=== PATIENT | female | born 1985 | race Hispanic/Latino ===

== ENCOUNTER 2017-02-18 07:04 | Inpatient (IN) | payer MEDICAID ==
[~2017-02-18] VITALS: Ht 157.5 cm; Wt 72.6 kg
[2017-02-18] MEDS ORDERED: Lactated Ringer's 1,000 ML IV SCH ×2 (08:03→12:36)
[2017-02-18] MEDS ORDERED: Methylergonovine 0.2 mg/mL Inj IM PRN ×2 (08:05→12:40)
[2017-02-18] MEDS ORDERED: CeFAZolin Inj 2 GM in Dextrose 5% 50 ML IV ONE (08:05)
[2017-02-18] MEDS ORDERED: Hemorrhage Kit, Post Partum XX ONE ×2 (08:05→12:40)
[2017-02-18] MEDS ORDERED: Sodium Citrate-Citric Acid 15 mL Solution PO SCH (08:05)
[2017-02-18] MEDS ORDERED: Carboprost 250 mCg/mL Inj IM PRN ×2 (08:05→12:40)
[2017-02-18] MEDS ORDERED: Oxytocin 10 Unit/mL Inj IM PRN ×2 (08:05→12:40)
[2017-02-18] MEDS ORDERED: CeFAZolin Inj 2 GM in IV Premix 1 EACH IV ONE (08:12)
[2017-02-18 08:15] LABS: Mean Corpuscular Hemoglobin 29.6 pg (27.0-35.0); Mean Corpuscular Volume 89.8 fL (81-100)
[2017-02-18] MEDS ORDERED: Morphine PF 1 mg/mL 10 mL Inj ONE (08:16)
[2017-02-18] MEDS ORDERED: Dexamethasone 4 mg/mL Inj ONE (08:16)
[2017-02-18] MEDS ORDERED: Ondansetron 2 mg/mL 2 mL Inj ONE (08:16)
[2017-02-18] MEDS ORDERED: MetoCLOpramide 5 mg/mL 2 mL Inj ONE (08:16)
[2017-02-18] MEDS ORDERED: Phenylephrine/NS 100 mCg/mL 10 mL Syringe IVPUSH ONE (08:16)
[2017-02-18] MEDS ORDERED: Oxytocin 10 Unit/mL Inj ONE (08:16)
[2017-02-18] MEDS ORDERED: EPHEDrine/NS 5 mg/mL 5 mL Syringe ONE (08:16)
--- NOTE | 2017-02-18 09:58 | HP ---
[address] [address] HISTORY AND PHYSICAL PATIENT: SANCHEZ NG : 1985 MR#: [id number] ADMIT: 02/18/2017 JOB ID: [id number] DATE OF ADMISSION: 02/18/2017 CHIEF COMPLAINT: Patient presented for scheduled repeat section and bilateral tubal ligation. HISTORY OF PRESENTING ILLNESS: This is a 31 years old 2, para 1-0-0-1, at 39 weeks and 3 days with expected date of delivery of February 22, 2017, dated by last menstrual period and consistent with a nine week ultrasound. Patient had history of previous one section. Declined trial of labor after section. The patient desires permanent sterilization. Informed consent for sterilization was signed on January 10, 2017 and a surgical consent for repeat section and tubal ligation was signed on February 03, 2017. The patient presented today for scheduled procedure with no complaint. The patient reports good movement. No vaginal bleeding, no loss of fluid and no regular contractions. complicated with: 1. Previous one section. 2. Possible Zika virus exposure, negative screening testing x2. 3. Echogenic intracardiac foci. Patient was referred to Maternal Medicine. Confirmed echogenic intracardiac focus in the left ventricle. No other markers was noted. Cell-free DNA test negative for aneuploidy. 4. History of kidney stones during this . The patient was seen by Urology at [place]. PAST GYNECOLOGIC HISTORY: Menarche at age 17, regular menstrual cycles monthly. Last for 4-5 days. Used control pills in the past for control with side effect of headache. PAST OBSTETRIC HISTORY: First was in 2012 delivered via delivery was scheduled for suspected macrosomia and cephalopelvic disproportion. The surgery was done in [place]. Outcome female 3.65 kg. Anesthesia was regional. PAST MEDICAL HISTORY: Noncontributory besides history of kidney stones during this . PAST SURGICAL HISTORY: 1. delivery x1. 2. Hernia repair in the right lower quadrant. MEDICATIONS: vitamins. ALLERGIES: No known drug allergies. SOCIAL HISTORY: He denies smoking, alcohol, or illicit drug abuse. FAMILY HISTORY: Mother is healthy. Father is healthy. Siblings are healthy. Positive history of twins, uncles, and cousins. Denies family history of cancer or congenital disease or mental or developmental disease. REVIEW OF SYSTEMS: An 11-point review of systems is negative except for the items in the history of presenting illness. PHYSICAL EXAMINATION: Vital signs stable. General, alert oriented to time, place, and person. Neck is supple. Chest equal air entry bilaterally. No added sounds. Cardiovascular regular rate and rhythm. Abdomen gravid, no tenderness. Estimated weight 7-1/2 pounds. Lower extremities +1 edema bilaterally. Positive deep tendon reflex +2 bilaterally. No clonus. LABORATORIES: labs: Blood type O positive. Rubella immune. RPR nonreactive. Hepatitis B surface antigen nonreactive. HIV nonreactive. Antibody screening negative at nine weeks. Hematocrit 35.8 at 9 weeks and 35% at 28 weeks. Quad screen negative. Urine culture negative on July 19, 2016. Diabetes screening one hour test within normal limits 124 at 28 weeks. Chlamydia and gonorrhea screening negative on August 16, 2016. Group B strep positive January 27, 2017. Pap smear within normal limits. An HPV negative on August 16, 2016. ASSESSMENT: This is a 31 years old 2, para 1-0-0-1, at 39 weeks and 3 days gestation with previous one section. Declined trial of labor after section and desires permanent sterilization. PLAN: Informed consents were reviewed and the patient was counseled shortly before surgery again about risk and benefits and alternatives of repeat section. The patient desires to proceed with a section. The patient was also counseled about risks, benefits, and alternatives of tubal ligation including [place] and male sterilization. Patient understands that tubal ligation is permanent procedure and with a failure rate of 1 in 200 with risk of ectopic and possible need for hormonal contraceptive in the future for abnormal uterine bleeding if present. All questions were answered. The patient desires to proceed with a tubal ligation as planned today. Labs drawn and will proceed with the procedure.
[2017-02-18] MEDS ORDERED: EPHEDrine Sulfate 50 mg/mL Inj IVPUSH PRN (11:20)
[2017-02-18] MEDS ORDERED: Atropine 0.4 mg/mL Inj IV PRN (11:20)
[2017-02-18] MEDS ORDERED: fentaNYL-PF 50 mCg/mL 2 mL Inj IVPUSH PRN (11:20)
[2017-02-18] MEDS ORDERED: Promethazine Inj 12.5 MG in Dextrose 5%-Pha MIX 50 ML IV ONE (11:25)
--- NOTE | 2017-02-18 11:25 | PCM.HPANE ---
Patient Data Date of Service: Feb 18, 2017 Surgeon Admitting Provider:Adrianne Krishna MD Attending Provider:Adrianne Krishna MD Primary Care Physician:Micheal Other Provider:Kayce Soto Anesthesia Reason for Visit Term TERM Ht/WT & BMI Body Mass Index Allergies Coded Allergies: No Known Allergies (Unverified , 02/18/17) Past Anesthesia History Anesthesia History: Denies:: Abnormal Airway Diabetes History Hx Diabetes?: No MRSA MRSA: No Medications Hypertension Medication: No Home Meds Incl Beta Jose D: No History History of ENT Problems?: No HEENT History: Denies:: Abnormal Airway Denture Type: None Teeth Condition: Within Normal Limits Hx of Heart Problems?: No Cardiovascular History: Denies:: Peripheral Vascular Rheumatic Fever Hx of Respiratory Problem?: No Respiratory History: Denies:: Asthma Hx Neurologic Problems?: No Hx of GI Problems?: No Hx of Problems?: No HX of Peritoneal Dialysis: No Female Hx: Positive for:: Currently Hx Musculoskeletal Problems?: No Hx of Psycho/Social Problems?: No Hx Surgeries?: No Hx Any Other Health Problems?: No Hx Diabetes: No Smoking Status: Never Smoker Stop/Bang Treated for Sleep Apnea?: No Do You Have a CPAP Machine?: No S-Snoring: Do You Snore Loudly: No T-Tired: feel tired, fatigued: No O-Obsered: Observed not breath: No P-Blood Pressure: treated: No B- Body Mass Index > 35 kg/m2: No A- Age over 50: No N- Neck Large Circumference: No G- Gender Male: No MIKE Risk Assessment: Low Risk, <3 Yes Risk Assessment Category Category 1A: Patient has history of documented sleep apnea, and HAS NOT received any narcotic, sedative or anesthesia administration during this stay. Category 1B: Patient has history of documented sleep apnea, and HAS received any narcotic , sedative or anesthesia administration during this stay Category 2: Patient has SUSPECTED Obstructive Sleep Apnea, and HAS received any narcotic , sedative or anesthesia administration during this stay. Category 3: Patient has SUSPECTED Obstructive Sleep Apnea and HAS NOT received narcotic, sedative or anesthesia administration during this stay. Category 4: Outpatient in Procedural Areas with known sleep apnea or who screen positive for High Risk via the STOP/BANG questionnaire. Exam Exam General Appearance: Alert, Oriented X3 HEENT/AIRWAY: MP 2 Lungs: Clear to Auscultation Heart: Exam Unremarkable Meds/Labs/Diagnostics Admission Meds Current Medications Lactated Ringer's (Lr) 1,000 ml @ 125 mls/hr Q8H IV Last administered on t 09:26; Start 02/18/17 at 08:03; Stop 02/18/17 at 16:02 Labs Test 02/18/17 07:30 White Blood Count 8.3th/mm3 (3.8-10.1) Red Blood Count 3.82mil/mm3 (3.90-5.20) Hemoglobin 11.3g/dL (12.0-15.6) Hematocrit 34.3% (35.0-46.0) Mean Corpuscular Volume 89.8fL (81-100) Mean Corpuscular Hemoglobin 29.6pg (27.0-35.0) Mean Corpuscular Hemoglobin Concent 32.9% (32.0-37.0) Red Cell Distribution Width 14.2% (12.3-15.4) Platelet Count 165bil/L (150-400) Plan Impression Patient chart reviewed, patient interviewed and anesthestic plan with risks, benefits, and alternatives discussed, and informed consent obtained. NPO per Anesth. Guidelines: Yes ASA Physical Status: ASA1 Normal Healthy Anesthetic Plan: Regional Block Bene/Risks/Altern/Consents: Yes HP Complete Prior to Induction: Yes Keith Contreras MD Feb 18, 2017 11:25
[2017-02-18] MEDS ORDERED: Ondansetron 8 mg ODT Tablet PO PRN (12:40)
[2017-02-18] MEDS ORDERED: Oxytocin 30 Units/500 mL LR 30 UNITS in IV Premix 1 EACH IV PRN (12:40)
[2017-02-18] MEDS ORDERED: LANOlin HPA 7 Gm Ointment TOPICAL PRN (12:40)
[2017-02-18] MEDS ORDERED: Sodium Chloride LOK Flush 10 mL Syringe IVFLUSH PRN (12:40)
[2017-02-18] MEDS ORDERED: Ondansetron 2 mg/mL 2 mL Inj IVPUSH ONE (12:40)
[2017-02-18] MEDS ORDERED: hydrOXYzine Pamoate 25 mg Capsule PO PRN (12:40)
[2017-02-18] MEDS ORDERED: Promethazine 50 mg Rectal Suppository RECTAL PRN (12:40)
[2017-02-18] MEDS ORDERED: Promethazine 25 mg Rectal Suppository RECTAL PRN (12:53)
--- NOTE | 2017-02-18 13:42 | OP ---
[address] [address] OPERATIVE REPORT PATIENT: SANCHEZ NG : 1985 MR#: [id number] ADMIT: 02/18/2017 JOB ID: [id number] DATE OF SURGERY: 02/18/2017 PREOPERATIVE DIAGNOSIS(ES): 1. Previous delivery, declined trial of labor after section. 2. Desires permanent sterilization. POSTOPERATIVE DIAGNOSIS(ES): 1. Previous delivery, declined trial of labor after section. 2. Desires permanent sterilization. PROCEDURE: Repeat delivery with bilateral tubal ligation. SURGEON: Adrianne Krishna M.D. BOX SEALING MACHINE OPERATOR: Kristi Madden M.D. COMPLICATIONS: None. ANESTHESIA: Spinal. ESTIMATED BLOOD LOSS: 700 mL. IV FLUIDS: 1500 mL. URINE OUTPUT: 250 mL. SPECIMEN: Segment of the right and left fallopian tubes sent for pathology. IMPLANTS: None. FINDINGS: Normal uterus, tubes and ovaries though the right ovary noted to be edematous and only the distal segment of the tube was identified and was traced to the fimbria. INDICATIONS: This is a 31-year-old 2, para 1-0-0-1, at 39 weeks and 3 days gestation with history of previous section. The patient was counseled extensively at the office regarding the risks, benefits and alternatives of repeat section and compared to trial of labor after section. Patient declined trial of labor after section and desires to proceed with a repeat section. The patient was also interested in sterilization. The patient was counseled extensively at the office and again prior to the procedure regarding risks, benefits and alternatives of tubal ligation. Discussed alternative options including LARC and male sterilization. Discussed tubal ligation is a permanent procedure, risk of ectopic was reviewed. The risk of need of hormonal contraception or treatment in the future for abnormal uterine bleeding. All discussed in details. The patient desires to proceed with the tubal ligation today. OUTCOME: Male Apgars 9 and 10 at one and five minutes respectively and the weight is 3765 g equivalent to 8 pounds 5 ounces. One nuchal cord was released before delivery of the in cephalic presentation. Placenta was delivered with simple expression intact. DESCRIPTION OF PROCEDURE: After informed consent was obtained, the patient was taken to the operation room. She was placed under adequate spinal anesthesia, then she was placed in supine position. The pelvic preparation was performed with iodine and then Bryant catheter was inserted. Abdominal prep was performed and the patient was draped in the usual sterile fashion. After confirmation of anesthesia adequacy, a skin incision was made along the line of the previous scar. The incision was carried down to the fascia with Bovie cautery. The initial fascial incision was made with a scalpel that was extended bilaterally with curved Espinosa scissors in a curvilinear fashion. The inferior aspect of the fascia was grasped on either side of the midline. The fascia was dissected off the underlying rectus muscles with blunt and sharp dissection. Then, the superior aspect of the fascia was grasped on either side of the midline and was dissected off the underlying rectus muscles with blunt and sharp dissection. The rectus muscles were then in the midline. Dense adhesions were noted at this level. An area clear of the vascularity of adhesions was identified and was using Bovie cautery. Then, the peritoneum was identified. An area clear of the vascularity of the peritoneum was entered bluntly. Then was extended with Metzenbaum scissors and are is clear of vascularity or viscera. Then the peritoneal opening was further extended with bilateral traction. A bladder blade was placed. The peritoneal reflection was identified. Bladder flap was created with Metzenbaum scissors. Bladder blade was repositioned. The uterine incision was made in the lower uterine segment and it was extended with bandage scissors in a curvilinear fashion. Clear amniotic fluid was noted. Head was elevated out of the pelvis easily and was delivered in cephalic presentation in left occiput anterior position. Nuchal cord was released. Shoulders delivered without difficulty. Delayed cord clamping was performed after 1 minute. The cord blood was collected for typing. Then the placenta was delivered with simple expression. The uterus was exteriorized, cleared of any remaining clots and debris. The uterine incision was then closed with 0-Vicryl in a running, interlocking fashion. A second imbricating layer was performed with good hemostasis. An area of hematoma was noted at the left lower uterine incision that was controlled with three [id number] stitches using 0-Vicryl. Small bleeders at the lower uterine segment were controlled with Bovie cautery. Then, attention was turned to the tubal ligation part of the procedure. The left fallopian tube was identified, traced out to the fimbria. The middle segment of the tube that was elevated with Sharon clamp, window was created in the mesial salpinx with Bovie cautery. Then, the middle segment was double ligated bilaterally with plain gut and a 3-4 cm segment was excised. The stump end of the remaining tube was examined. Hemostasis was ensured with Bovie cautery. Then, attention was turned to the right fallopian tube that was traced out to the fimbria. The medial half of the tube was edematous, enlarged and diffused with the mesosalpinx but the distal half of the tube was normal in appearance. That was grasped with a [place] and elevated. A window was created in the mesosalpinx. A middle segment 3-4 cm in length was double ligated in each side and was excised. The remaining stumps were examined and hemostasis was ensured with gentle Bovie cautery. Tubes were re-examined. Hemostasis was ensured. The posterior cul-de-sac was irrigated and cleared of any remaining clots and debris. The uterus was placed back into the abdominal cavity. Lateral gutters were examined and cleared of any remaining clots and debris. The fallopian tube was examined and hemostasis was ensured. Then the uterine incision was revisited, noted to be hemostatic. Attempted to close the peritoneum but the peritoneal opening was under tension and irregular. So the rectus muscles were approximated with simple interrupted stitches using 2-0 chromic. The subfascial layer was examined and hemostasis was ensured. The fascia was closed with 0-Vicryl in a running fashion. The subcutaneous layer was closed with simple interrupted stitches of 2-0 chromic. The skin was closed with 4-0 Monocryl in subcuticular fashion followed by Steri-Strips. Bandage was placed. All instruments, needles, sponges counts were correct x2. The patient tolerated the procedure well and was transferred to the delivery room for recovery. Dr. Madden was present for assistant winemaker that was required for safe delivery of the and safe completion of the procedure. Adrianne Lucero M.D., was present for the entire procedure.
[2017-02-18] MEDS: Acetaminophen IV 1,000 MG in IV Premix 1 EACH IV PRN (16:34)
[2017-02-19] MEDS: Acetaminophen IV 1,000 MG in IV Premix 1 EACH IV PRN (00:15)
[2017-02-19 07:11] LABS: Mean Corpuscular Hemoglobin 29.7 pg (27.0-35.0); Mean Corpuscular Volume 91.4 fL (81-100)
[2017-02-19] MEDS ORDERED: Ascorbic Acid 500 mg Tablet PO SCH (08:00)
--- NOTE | 2017-02-19 09:05 | PCM.PNOBPP ---
Subjective Date of Service Feb 19, 2017 Post : Repeat Ceserean Delivery (and BTL ) Lochia: Normal Gastrointestinal: Good Appetite, No N/V Postop Activity: Ambulating in Room Only Labs Laboratory Tests 02/19/17 06:50: White Blood Count 9.3, Red Blood Count 3.13, Hemoglobin 9.3, Hematocrit 28.6, Mean Corpuscular Volume 91.4, Mean Corpuscular Hemoglobin 29.7, Mean Corpuscular Hemoglobin Concent 32.5, Red Cell Distribution Width 14.2, Platelet Count 137 Exam Vital Signs Vital Signs: VS reviewed, stable Exam Abdomen: Fundus firm Lungs: Clear to Auscultation Heart: Regular Rate/Rhythm, Normal S1, Normal S2 General: Alert, Oriented X3 Surgical Wound : Incision General Appearence: Steri Strips, Sutures, Intact, Well Approximated, Incision Healing, No Erythemia, No Discharge, No Inflammatory Changes OB Post Assessment/Plan Assessment 31 Y POD#1 S/P RCD and BTL Post OP anemia asymptomatic Start iron Bryant cath removed this AM, not voiding yet. Continue to monitor Pain Evaluation: Adequate Pain Control Adrianne Krishna MD Feb 19, 2017 09:05
[2017-02-19] MEDS: oxyCODONE-Acetamin 5-325 mg Tablet PO PRN ×4 (09:08→20:58)
[2017-02-20] MEDS: oxyCODONE-Acetamin 5-325 mg Tablet PO PRN ×4 (01:05→14:43)
--- NOTE | 2017-02-20 13:07 | PCM.DIOB ---
Obstetrical Disch Instruction Date of Service: Feb 20, 2017 Dates of Hospitalization Date of Hospital Admission Feb 18, 2017 at 07:04 Providers Admitting Physician: Adrianne Krishna MD Primary Care Physician: Micheal Attending Physician: Adrianne Krishna MD Discharge Diagnosis Discharge Diagnosis Status post repeat section and bilateral tubal ligation Anemia Problems: Diet Discharge Diet: No restrictions Activity Discharge Activity-General: Pelvic Rest for 6 weeks (no sex, tampons nor douching), Balance rest and activity, No lifting >10 pounds for 4-6 weeks Dressing and Incisional Care Hygiene: May shower (daily), Wash incision with soap & water (daily ), DO NOT soak incision under water, NO bathtub, hot tub or whirlpool Follow Up Plan Follow-up Provider (F9): Adrianne Krishna MD Follow-up appointment: Weeks (Two) Call your provider for: Fever or Chills, Shortness of breath, Heavy vaginal bleeding, Heavy bleeding, Epigastric pain, Excessive constipation, Vaginal discomfort, Red painful breasts, Other (headache, change in vision, nausea/ vomiting, leg swelling and change in color. ) Adrianne Krishna MD Feb 20, 2017 13:07
[2017-02-20] MEDS ORDERED: IBUP-1827 PO (13:11)
[2017-02-20] MEDS ORDERED: Simethicone PO (13:11)
[2017-02-20] MEDS ORDERED: OXYC1TAB24 PO (13:11)
[2017-02-20] MEDS ORDERED: DOCU-41 PO (13:11)
[2017-02-20] MEDS ORDERED: FERR-74 PO (13:11)
[2017-02-20] MEDS ORDERED: Ascorbic Acid PO (13:11)
--- NOTE | 2017-02-20 13:13 | PCM.DC.OB ---
Obstetrical Discharge Summary Date of Service Feb 20, 2017 Date of hospital admission Feb 18, 2017 at 07:04 Date of Discharge: Feb 20, 2017 Providers Admitting Physician: Kika Marinelli MD Primary Care Physician: Micheal Attending Physician: Kika Marinelli MD Hospital Course: Discharge Diagnosis Discharge Diagnosis 1. Postoperative day #2 Status post repeat section and bilateral tubal ligation, see delivery note for details. 2. Anemia CBC Test 02/19/17 06:50 White Blood Count 9.3th/mm3 (3.8-10.1) Red Blood Count 3.13mil/mm3 (3.90-5.20) Hemoglobin 9.3g/dL (12.0-15.6) Hematocrit 28.6% (35.0-46.0) Mean Corpuscular Volume 91.4fL (81-100) Mean Corpuscular Hemoglobin 29.7pg (27.0-35.0) Mean Corpuscular Hemoglobin Concent 32.5% (32.0-37.0) Red Cell Distribution Width 14.2% (12.3-15.4) Platelet Count 137bil/L (150-400) Discharge Condition: stable. Disposition: home. Diet Discharge Diet: No restrictions Activity Discharge Activity-General: Pelvic Rest for 6 weeks (no sex, tampons nor douching), Balance rest and activity, No lifting >10 pounds for 4-6 weeks Dressing and Incisional Care Hygiene: May shower (daily), Wash incision with soap & water (daily ), DO NOT soak incision under water, NO bathtub, hot tub or whirlpool Follow Up Plan Follow-up Provider (F9): Kika Marinelli MD Follow-up appointment: Weeks (Two) Call your provider for: Fever or Chills, Shortness of breath, Heavy vaginal bleeding, Heavy bleeding, Epigastric pain, Excessive constipation, Vaginal discomfort, Red painful breasts, Other (headache, change in vision, nausea/ vomiting, leg swelling and change in color. ) ([Simethicone]) 80 MG CHEW 80 MG PO QID PRN PRN for gas Prescribed by: KIKA MARINELLI MD ([Ascorbic Acid]) 500 MG TABLET 500 MG PO BID Prescribed by: KIKA MARINELLI MD Docusate Sodium (Colace) 100 Mg Capsule 100 MG PO BID Prescribed by: KIKA MARINELLI MD Ferrous Sulfate (Feosol) 325 Mg Tablet 325 MG PO BIDWM Prescribed by: KIKA MARINELLI MD Ibuprofen (Ibuprofen) 600 Mg Tablet 600 MG PO QID PRN PRN For Pain Prescribed by: KIKA MARINELLI MD oxyCODONE-Acetaminophen 5-325 mg (oxyCODONE-Acetaminophen 5-325 mg) 1 Each Tablet 1-2 TAB PO Q4H PRN PRN For Pain Prescribed by: MD Erendira RAMON Omaima A MD Feb 20, 2017 13:13
--- NOTE | 2017-02-20 13:43 | PATH ---
SURGICAL PATHOLOGY Attending Physician:Adrianne Krishna CASE STATUS: Signed Out PATIENT NAME: SANCHEZ NG PID: [id number] : 1985 DATE COLLECTED:02/18/2017 00:00 SPECIMEN: 1: Fallopian Tube, Sterilization 2: Fallopian Tube, Sterilization CLINICAL HISTORY: BILATERAL TUBAL LIGATION AT TIME OF 1). SEGMENTS OF RIGHT FALLOPIAN TUBE 2). SEGMENTS OF LEFT FALLOPIAN TUBE FINAL DIAGNOSIS: 1.SEGMENTS OF RIGHT FALLOPIAN TUBE, TUBAL LIGATION:COMPLETE CROSS-SECTION OF FALLOPIAN TUBE. NEGATIVE FOR NEOPLASM. 2.SEGMENTS OF LEFT FALLOPIAN TUBE, TUBAL LIGATION: COMPLETE CROSS-SECTION OF FALLOPIAN TUBE. NEGATIVE FOR NEOPLASM. [id number] GROSS DESCRIPTION: The specimen is received in 2 containers fresh, labeled with the patient's name. 1). The specimen is labeled "ri tube" and consists of a non-fimbriated cylindrical shaped portion of tissue which measures 1.3 x 0.6 x 0.6 CM. The specimen is inked blue, trisected and entirely submitted in cassette 1A. 2). The specimen is labeled "l tube" and consists of a non-fimbriated cylindrical shaped portion of tissue which measures 1.8 x 0.4 x 0.4 CM. The specimen is inked blue, trisected and entirely submitted in cassette 2A. 02/19/2017SC MICRO DESCRIPTION: See diagnosis. ICD-9 CODES: CPT CODES: 1: 26912 2: 63755 Electronically Signed Out Ramakrishna Toscano MD [facility] [address], [place] [address] Technical component performed at [facility], [address], [place], [address]
== END 2017-02-20 14:45 | disposition home or self-care (01) | DRG 766 ==
LOC: FBC 07:04 → EDSTATUS 09:30
PROVIDERS: ADMIT Obstetrics & Gynecology; ATTEND Obstetrics & Gynecology
PROC: 0UL70ZZ Occlusion of Bilateral Fallopian Tubes, Open Approach (ICD-10-PCS; 2017-02-18)
PROC: 10D00Z1 Extraction of Products of Conception, Low, Open Approach (ICD-10-PCS; principal; 2017-02-18 09:15)
DX: O34.211 Maternal care for low transverse scar from previous cesarean delivery (principal); D64.9 Anemia, unspecified; O90.81 Anemia of the puerperium; Z30.2 Encounter for sterilization; Z3A.39 39 weeks gestation of pregnancy; Z37.0 Single live birth